=== PATIENT | female | born 1990 | race Two or more races ===

== ENCOUNTER 2019-05-08 11:04 | Emergency (ER) | payer MEDICAID ==
[~2019-05-08] VITALS: Ht 152.4 cm; Wt 59.0 kg
--- NOTE | 2019-05-08 11:10 | NUR ---
PT CAME INTO THE ED C/O ABDOMINAL CRAMPING X 2 DAYS. STATES BEEN "SICK" SORE THROAT X 1 WEEK. -NVD. PT AAOX4, VSS, BREATHING EVEN AND UNLABORED ON ROOM AIR W/ NAD. PT CONNECTED TO THE MONITOR AND POX.
[2019-05-08 11:31] LABS: BASOPHILS % (AUTO) 0.5 % (0.0-2.0); EOSINOPHILS % (AUTO) 0.9 % (0.0-6.0); HEMATOCRIT 41 % (33-45); HEMOGLOBIN 13.5 g/dL (11.5-14.8); LYMPHOCYTES # (AUTO) 1.7 /CMM (0.8-4.8); LYMPHOCYTES % (AUTO) 20.1 % (20.0-44.0); MEAN CORPUSCULAR HGB CONC 33 g/dl (31.0-36.0); MEAN CORPUSCULAR VOLUME 90 fL (82-100); MONOCYTES # (AUTO) 0.7 /CMM (0.1-1.30); MONOCYTES % (AUTO) 8.1 % (2.0-12.0); NEUTROPHILS % (AUTO) 70.4 % (43.0-81.0); PLATELET COUNT (AUTO) 213 /CMM (150-450); RED BLOOD CELL COUNT(AUTO) 4.51 MIL/uL (4.0-5.2); WHITE BLOOD COUNT (AUTO) 8.5 K/uL (4.3-11.0)
[2019-05-08 11:39] LABS: CALCIUM, SERUM 9.3 mg/dL (8.5-10.1); CREATININE 0.6 mg/dL (0.6-1.3); POTASSIUM 3.6 mmol/L (3.5-5.1)
[2019-05-08 11:42] LABS: BILIRUBIN,URINE SMALL (NEGATIVE); BLOOD, URINE Negative Ery/uL (NEGATIVE); COLOR,URINE Yellow (YELLOW); KETONES,URINE Trace (NEGATIVE); LEUKOCYTE ESTERASE ,URINE Negative (NEGATIVE); NITRITE, URINE Negative (NEGATIVE); PROTEIN,URINE Negative (NEGATIVE); UGLUCOSE Negative (NEGATIVE)
[2019-05-08 11:43] LABS: APPEARANCE,URINE Hazy (CLEAR)
[2019-05-08 11:45] LABS: ALBUMIN 3.5 g/dL (3.4-5.0); BILIRUBIN,DIRECT 0.2 mg/dL (0.0-0.2); BILIRUBIN,TOTAL 0.9 mg/dL (0.2-1.0); TOTAL PROTEIN, SERUM 8.5 g/dL (6.4-8.2)
--- NOTE | 2019-05-08 11:50 | NUR ---
ULTRASOUND AT BEDSIDE
[2019-05-08 11:52] LABS: BACTERIA,URINE Rare /HPF (None Seen); SQUAMOUS EPITHELIAL CELL,UR Moderate /HPF (None Seen); WBC,URINE 0-3 /HPF (0-3)
[2019-05-08] MEDS ORDERED: KETOROLAC TROMETHAMINE INJ 30 MG/ML VIAL ONE (11:58)
[2019-05-08] MEDS ORDERED: IV NS 0.9% 1,000 ML BAG IV ONE (12:00)
[2019-05-08] MEDS ORDERED: KETOROLAC TROMETHAMINE INJ 30 MG/ML VIAL IV ONE (12:00)
--- NOTE | 2019-05-08 13:54 | NUR ---
Patient discharged to home in stable condition. Written and verbal after care instructions given. Patient verbalizes understanding of instruction.IV removed. Catheter intact and site benign. Pressure and 4x4 applied to site. No bleeding noted.
[2019-05-08 13:56] VITALS: BP 118/71
== END 2019-05-08 13:56 | disposition home or self-care (01) ==
LOC: ER 11:06
DX: D25.9 Leiomyoma of uterus, unspecified (principal)
CPT/HCPCS: 36415; 76856; 80048; 80076; 81001; 83690; 84703; 85025; 87804 ×2; 96374; 99284; J1885; J7030; 81000-TC

== ENCOUNTER 2019-05-17 10:09 | Emergency (ER) | payer MEDICAID ==
[~2019-05-17] VITALS: Ht 165.1 cm; Wt 58.1 kg
[2019-05-17 10:29] VITALS: BP 96/57
--- NOTE | 2019-05-17 10:53 | NUR ---
Patient discharged to home in stable condition. Written and verbal after care instructions given. Patient verbalizes understanding of instruction.
== END 2019-05-17 10:53 | disposition home or self-care (01) ==
LOC: ER 10:11
DX: D25.9 Leiomyoma of uterus, unspecified (principal)

== ENCOUNTER 2022-02-25 17:27 | Emergency (ER) | payer MEDICAID, OTHER ==
[~2022-02-25] VITALS: Ht 152.4 cm; Wt 68.0 kg
[2022-02-25 17:34] VITALS: BP 114/60
[2022-02-25] MEDS ORDERED: CYCLOBENZAPRINE 10 MG TABLET ONE (18:28)
[2022-02-25] MEDS ORDERED: KETOROLAC TROMETHAMINE INJ 30 MG/ML VIAL ONE (18:28)
[2022-02-25] MEDS ORDERED: CYCLOBENZAPRINE 10 MG TABLET PO ONE (18:30)
[2022-02-25] MEDS ORDERED: KETOROLAC TROMETHAMINE INJ 30 MG/ML VIAL IM ONE (18:30)
--- NOTE | 2022-02-25 18:39 | NUR ---
TORADOL IM GIVEN ON LEFT DELTOID. FLEXERIL TAKEN PO, KIESHA WELL.
[2022-02-25] MEDS ORDERED: CYCL5TAB PO (19:17)
[2022-02-25] MEDS ORDERED: KETO10TA2 PO (19:17)
--- NOTE | 2022-02-25 19:22 | NUR ---
Patient discharged to home in stable condition. Written and verbal after care instructions given. Patient verbalizes understanding of instruction.
== END 2022-02-25 19:22 | disposition home or self-care (01) ==
LOC: ER 17:34
DX: M54.12 Radiculopathy, cervical region (principal); Z79.899 Other long term (current) drug therapy
CPT/HCPCS: 99283; 96372; J1885